=== PATIENT | male | born 1965 | race Caucasian/White ===

== ENCOUNTER → 2021-05-27 13:41 | Outpatient (BNVA) | payer BC, SELFPAY | PROVIDERS: PCP Internal Medicine; Visit Provider Internal Medicine ==

== ENCOUNTER 2022-06-08 18:49 | Emergency (ER) | payer BC, SELFPAY ==
--- NOTE | ~2022-06-08 | CT_ITS ---
EXAMINATION: NONCONTRAST HEAD CT NONCONTRAST CERVICAL SPINE CT INDICATION INFORMATION: Head pain status post fall with loss of consciousness. Neck pain COMPARISON: Head CT 01/19/2020 TECHNIQUE: Separate noncontrast CT examinations of the head and cervical spine were performed. Coronal and sagittal images were created for each examination at the technologist workstation. This CT examination was performed using dose optimization techniques as appropriate, variously including the following: *Automated exposure control *Adjustment of mA and/or kV according to patient size (this includes techniques or standardized protocols for targeted exams where dose is matched to indication/reason for exam; i.e. extremities or head) *Use of iterative reconstruction technique DLP: 1398 mGy-cm FINDINGS: HEAD: There is a small amount of subarachnoid hemorrhage overlying the anterolateral left frontal and temporal lobes. Suggestion of a trace extra-axial likely subdural hematoma overlying the upper anterior left temporal lobe on series 3 image 37. No additional intra or extra-axial hemorrhage, fluid collection, mass. No midline shift or herniation. Basal cisterns are patent. The diaz-white matter differentiation is maintained. No territorial encephalomalacia. No significant volume loss. There is no abnormal attenuation within the brain parenchyma. Right posterior's/parietal scalp hematoma with bubbles of gas consistent with the accompanying laceration. Correlate with exam. No calvarial fracture. Small mucous retention cyst in the left sphenoid sinus. Mastoid air cells are normally aerated. CERVICAL SPINE: Alignment: Mild grade 1 anterolisthesis at C4-C5. No additional subluxation. Vertebra: No acute fracture. No prevertebral soft tissue swelling. Degenerative disc disease: Status post ACDF at C3-C4 with intact plate and screw fixation and solid ankylosis of the vertebral bodies and the right facets. Moderate disc height loss at C5-C6 with endplate sclerosis and proliferative change. Intervertebral disc heights otherwise fairly well-maintained. There is facet arthrosis right greater than left at C4-C5 and on the left at C5-C6 area Other findings: The visualized lung apices grossly clear. No cervical lymphadenopathy/mass in the [id number]. CT/CT cervical spine wo IV con IMPRESSION: 1. Small amount of subarachnoid hemorrhage overlying the anterolateral left frontal and temporal lobes. 2. Suggestion of a trace extra-axial possibly subdural hematoma overlying the upper anterior left temporal lobe. 3. No midline shift or herniation. 4. Right posterior/parietal scalp hematoma and laceration. No calvarial fracture. 5. No traumatic subluxation or acute cervical spine fracture. This critical result was discussed with Dr. Landen Cooley at 8:00 PM on 06/08/2022 and it was ascertained that the content and urgency of the report was understood at the time of direct communication.
[2022-06-08 18:54] VITALS: BP 122/85; BP 130/90; PULSE 73; PULSE 78; RESP 16; O2SAT 98; BMI 33.4
--- NOTE | 2022-06-08 18:55 | ED_ITS ---
HPI - Fall General Chief Complaint: Fall Stated Complaint: Head injury, Loss of conscious per EMS Time Seen by Provider: 06/08/22 18:51 Source: patient and EMS Mode of arrival: EMS Limitations: altered mental status History of Present Illness HPI Narrative: Patient otherwise in stable health went to bar had few drinks came home was in the basement next to the bar heard a bang found him on the ground, hit his head to the ground with swelling of the occipital area patient does not remember was confused transient loss of consciousness confused after patient came to the ER what and how happened to him does not remember exactly no seizures notice no chest pain no cardiac history in the past patient complaining of headache and nausea patient ambulatory as such Related Data Home Medications Medication Instructions Recorded Confirmed citalopram 20 mg tablet 20 mg PO DAILY 05/27/21 05/27/21 fexofenadine 180 mg tablet 180 mg PO DAILY 05/27/21 05/27/21 fluticasone propionate 50 spray intranasal 05/27/21 05/27/21 mcg/actuation nasal spray,suspension ketoconazole 2 % topical cream 1 appl topical 05/27/21 05/27/21 levothyroxine 88 mcg tablet 88 mcg PO DAILY 05/27/21 05/27/21 lorazepam 0.5 mg tablet 0.5 mg PO QID PRN 05/27/21 05/27/21 methylcellulose (laxative) 500 mg 0 mg PO 05/27/21 05/27/21 tablet (Fiber Therapy (methylcellulose)) nortriptyline 10 mg capsule 10 mg PO BEDTIME 05/27/21 05/27/21 pantoprazole 40 mg tablet,delayed 40 mg PO BID 05/27/21 05/27/21 release tacrolimus 0.1 % topical ointment topical BEDTIME 05/27/21 05/27/21 tizanidine 4 mg tablet 4 mg PO BEDTIME 05/27/21 05/27/21 Allergies Allergy/AdvReac Type Severity Reaction Status Date / Time No Known Allergies Allergy Verified 06/08/22 18:54 Review of Systems Review of Systems: Yes all other systems are reviewed and are negative [facility] Past Medical History Medical History 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 Anxiety Basal cell carcinoma Cervical spondylosis without myelopathy Cervical stenosis of spinal canal Diverticulosis Dysphagia Eosinophilic esophagitis Erectile dysfunction External hemorrhoids GERD (gastroesophageal reflux disease) Globus sensation History of actinic keratoses History of basal cell carcinoma Hypothyroidism IBS (irritable bowel syndrome) Lentigines Overweight Panic disorder Post-nasal drip Tubular adenoma of colon Vomiting Surgical History H/O colonoscopy H/O endoscopy H/O shoulder surgery Hx of tonsillectomy S/P excision of neuroma Social History Social History Alcohol intake: current Alcohol intake frequency: 3 or more drinks per day Smoked in Last 30 Days: No Use of substances other than those prescribed or required for medical reasons: Yes Substance Use Type: Marijuana Substance Use Frequency: Daily Advance Directives: No Advance Directives Information Provided: Yes Physical Exam Vital Signs: Vital Signs: Last Vital Signs Temp 97.4 F 06/08/22 19:56 Pulse 82 06/08/22 20:23 Resp 20 06/08/22 20:23 BP 118/82 06/08/22 20:23 Pulse Ox 100 06/08/22 20:23 O2 Del Method 06/08/22 20:23 BMI result Body Mass Index 33.4 Appearance: Alert. Oriented X2. No acute distress. Intoxicated GCS 15 Eyes: PERRLA, No Nystagmus HEENT: Pharynx normal. Oral Mucosa moist scalp swelling right occipital area Neck: Normal inspection. Neck supple. CVS: Normal heart rate and rhythm. Pulses normal. Respiratory: No respiratory distress. Equal air entry bilateral, no wheezing/rales/rhonchi Abdomen: Soft and nontender. Bowel sounds are present, no mass palpable, no CVA tenderness Skin: Skin warm and dry. Normal skin color. Normal skin turgor. Extremities: No lower extremity edema. No calf tenderness Neuro: Oriented X 2. No motor deficit. No sensory deficit.No cerebellar signs , cranial nerves II-XII intact Medications Administered Discontinued Medications Generic Name Dose Route Start Last Admin Trade Name Freq PRN Reason Stop Dose Admin Ondansetron HCl 4 mg 06/08/22 19:26 06/08/22 19:37 Ondansetron Hcl 4 Mg/2 Ml Vial IVPUSH 06/08/22 19:27 4 mg ONCE ONE Administration Medical Decision Making Medical Decision Making MDM Narrative: 20:30 Patient status post mechanical fall with small subdural and subarachnoid hemorrhage contour coup GCS of 15 not on any anticoagulant or aspirin , vital stable will transfer to [facility] 20;[address] HAGEN at [facility] trauma except the patient in the ER Lab Data [facility] Lab Attestation statement: I reviewed the patient's lab results. 06/08/22 19:07 06/08/22 19:07 Labs: Lab Results 06/08/22 06/08/22 06/08/22 Range/Units 19:00 19:07 19:07 WBC 8.7 (4.8-10.8) X10*3/uL RBC 4.42 L (4.60-5.80) X10*6/uL Hgb 15.1 (14.0-18.0) g/dl Hct 43.4 (42.0-52.0) % MCV 98.2 H (80.0-98.0) fL MCH 34.2 H (27.0-33.0) pg MCHC 34.8 (31.0-36.0) g/dl RDW 11.7 (11.0-16.0) % Plt Count 232 (160-400) X10*3/uL MPV 10.8 (9.4-12.4) fL Immature Gran % (Auto) 0.2 (0.0-0.4) % Neut % (Auto) 54.1 (45-73) % Lymph % (Auto) 30.4 (20-40) % [place] % (Auto) 11.6 H (2-11) % Eos % (Auto) 3.1 (0-4) % Baso % (Auto) 0.6 (0-2) % Lymph # (Auto) 2.6 (1.2-4.9) X10*3/uL [place] # (Auto) 1.0 (0.1-1.2) X10*3/uL Eos # (Auto) 0.3 (0.0-0.4) X10*3/uL Baso # (Auto) 0.1 (0.0-0.2) X10*3/uL Abs Immat Gran (auto) 0.02 (0.00-0.03) X10*3/uL Absolute Neuts (auto) 4.7 (2.0-8.3) x10*3/uL Absolute Nucleated RBC 0.000 (0.0-0.012) X10*3/uL Nucleated RBC % (auto) 0.0 (0.0-0.2) /100WBC PT (10.0-13.1) SEC INR (0.9-1.1) APTT (26.0-36.4) SEC Sodium 138 (135-145) mmol/L Potassium 4.1 (3.3-5.1) mmol/L Chloride 102 (96-108) mmol/L Carbon Dioxide 22 (22-29) mmol/L Anion Gap 18 (12-20) BUN 9 (9-16) mg/dL Creatinine 1.09 (0.5-1.4) mg/dL Estim Creat Clear Calc 91.0 Estimated GFR > 60 POC Glucose 82 (60-115) mg/dL Random Glucose 89 (60-115) mg/dL Calcium 9.3 (8.4-10.2) mg/dL Magnesium 2.1 (1.6-2.6) mg/dL Total Bilirubin 0.3 (0.0-1.0) mg/dL AST 31 (5-37) U/L ALT 31 (0-40) U/L Alkaline Phosphatase 74 (39-117) U/L Troponin I High Sens (<3.5-35.0) ng/L Total Protein 7.5 (6.5-8.0) g/dL Albumin 4.2 (3.5-5.0) g/dL Urine Opiates Screen (Not Detect) Urine Fentanyl Screen (Not Detect) Ur Barbiturates Screen (Not Detect) Ur Phencyclidine Scrn (Not Detect) Ur Amphetamines Screen (Not Detect) U Benzodiazepines Scrn (Not Detect) Urine Cocaine Screen (Not Detect) U Marijuana (THC) Screen (Not Detect) Ethyl Alcohol 206 mg/dL COVID-19 (JOSETTE) (Negative) COVID-19 Clin Com 06/08/22 06/08/22 06/08/22 Range/Units 19:07 20:04 20:04 WBC (4.8-10.8) X10*3/uL RBC (4.60-5.80) X10*6/uL Hgb (14.0-18.0) g/dl Hct (42.0-52.0) % MCV (80.0-98.0) fL MCH (27.0-33.0) pg MCHC (31.0-36.0) g/dl RDW (11.0-16.0) % Plt Count (160-400) X10*3/uL MPV (9.4-12.4) fL Immature Gran % (Auto) (0.0-0.4) % Neut % (Auto) (45-73) % Lymph % (Auto) (20-40) % [place] % (Auto) (2-11) % Eos % (Auto) (0-4) % Baso % (Auto) (0-2) % Lymph # (Auto) (1.2-4.9) X10*3/uL [place] # (Auto) (0.1-1.2) X10*3/uL Eos # (Auto) (0.0-0.4) X10*3/uL Baso # (Auto) (0.0-0.2) X10*3/uL Abs Immat Gran (auto) (0.00-0.03) X10*3/uL Absolute Neuts (auto) (2.0-8.3) x10*3/uL Absolute Nucleated RBC (0.0-0.012) X10*3/uL Nucleated RBC % (auto) (0.0-0.2) /100WBC PT 11.2 (10.0-13.1) SEC INR 1.0 (0.9-1.1) APTT 34.3 (26.0-36.4) SEC Sodium (135-145) mmol/L Potassium (3.3-5.1) mmol/L Chloride (96-108) mmol/L Carbon Dioxide (22-29) mmol/L Anion Gap (12-20) BUN (9-16) mg/dL Creatinine (0.5-1.4) mg/dL Estim Creat Clear Calc Estimated GFR POC Glucose (60-115) mg/dL Random Glucose (60-115) mg/dL Calcium (8.4-10.2) mg/dL Magnesium (1.6-2.6) mg/dL Total Bilirubin (0.0-1.0) mg/dL AST (5-37) U/L ALT (0-40) U/L Alkaline Phosphatase (39-117) U/L Troponin I High Sens < 3.5 (<3.5-35.0) ng/L Total Protein (6.5-8.0) g/dL Albumin (3.5-5.0) g/dL Urine Opiates Screen (Not Detect) Urine Fentanyl Screen (Not Detect) Ur Barbiturates Screen (Not Detect) Ur Phencyclidine Scrn (Not Detect) Ur Amphetamines Screen (Not Detect) U Benzodiazepines Scrn (Not Detect) Urine Cocaine Screen (Not Detect) U Marijuana (THC) Screen (Not Detect) Ethyl Alcohol mg/dL COVID-19 (JOSETTE) Negative (Negative) COVID-19 Clin Com See Note 06/08/22 Range/Units 20:45 WBC (4.8-10.8) X10*3/uL RBC (4.60-5.80) X10*6/uL Hgb (14.0-18.0) g/dl Hct (42.0-52.0) % MCV (80.0-98.0) fL MCH (27.0-33.0) pg MCHC (31.0-36.0) g/dl RDW (11.0-16.0) % Plt Count (160-400) X10*3/uL MPV (9.4-12.4) fL Immature Gran % (Auto) (0.0-0.4) % Neut % (Auto) (45-73) % Lymph % (Auto) (20-40) % [place] % (Auto) (2-11) % Eos % (Auto) (0-4) % Baso % (Auto) (0-2) % Lymph # (Auto) (1.2-4.9) X10*3/uL [place] # (Auto) (0.1-1.2) X10*3/uL Eos # (Auto) (0.0-0.4) X10*3/uL Baso # (Auto) (0.0-0.2) X10*3/uL Abs Immat Gran (auto) (0.00-0.03) X10*3/uL Absolute Neuts (auto) (2.0-8.3) x10*3/uL Absolute Nucleated RBC (0.0-0.012) X10*3/uL Nucleated RBC % (auto) (0.0-0.2) /100WBC PT (10.0-13.1) SEC INR (0.9-1.1) APTT (26.0-36.4) SEC Sodium (135-145) mmol/L Potassium (3.3-5.1) mmol/L Chloride (96-108) mmol/L Carbon Dioxide (22-29) mmol/L Anion Gap (12-20) BUN (9-16) mg/dL Creatinine (0.5-1.4) mg/dL Estim Creat Clear Calc Estimated GFR POC Glucose (60-115) mg/dL Random Glucose (60-115) mg/dL Calcium (8.4-10.2) mg/dL Magnesium (1.6-2.6) mg/dL Total Bilirubin (0.0-1.0) mg/dL AST (5-37) U/L ALT (0-40) U/L Alkaline Phosphatase (39-117) U/L Troponin I High Sens (<3.5-35.0) ng/L Total Protein (6.5-8.0) g/dL Albumin (3.5-5.0) g/dL Urine Opiates Screen Not Detected (Not Detect) Urine Fentanyl Screen Not Detected (Not Detect) Ur Barbiturates Screen Not Detected (Not Detect) Ur Phencyclidine Scrn Not Detected (Not Detect) Ur Amphetamines Screen Not Detected (Not Detect) U Benzodiazepines Scrn Not Detected (Not Detect) Urine Cocaine Screen Not Detected (Not Detect) U Marijuana (THC) Screen POSITIVE H (Not Detect) Ethyl Alcohol mg/dL COVID-19 (JOSETTE) (Negative) COVID-19 Clin Com Independent Interpretation I performed an independent interpretation of an: EKG Interpretation: Normal sinus rhythm heart rate 70 beats per minute normal interval n axis impression normal EKG Radiology Impression Discussion of test interpretation with radiology: I discussed test interpretation with the radiologist Radiologist Impression: CT/CT head/brain wo IV con IMPRESSION: 1.? Small amount of subarachnoid hemorrhage overlying the anterolateral left frontal and temporal lobes. 2.? Suggestion of a trace extra-axial possibly subdural hematoma overlying the upper anterior left temporal lobe. 3.? No midline shift or herniation. 4.? Right posterior/parietal scalp hematoma and laceration. No calvarial fracture. 5.? No traumatic subluxation or acute cervical spine fracture. ? Critical Care Time Critical Care Time Critical Care Time: Yes Total Critical Care Time: 35 Attestation: The patient was critically ill with a high probability of imminent or life threatening deterioration. I spent greater than 40 minutes of discontinuous time evaluating the patient,delivering critical care at the bedside, discussing and evaluating pertinent data with consultants. Critical care time does not include time spent performing separately billable procedures or teaching. Total time spent performing critical care was 35 minutes. Discharge Plan Discharge Clinical Impression: Subarachnoid hemorrhage, Alcohol intoxication Patient Disposition: [facility] Transfer Details: [facility] ED for trauma evaluation Prescriptions: No Action fexofenadine 180 mg tablet 180 mg PO DAILY tizanidine 4 mg tablet 4 mg PO BEDTIME tacrolimus 0.1 % ointment topical BEDTIME levothyroxine 88 mcg tablet 88 mcg PO DAILY pantoprazole 40 mg tablet,delayed release (DR/EC) 40 mg PO BID citalopram 20 mg tablet 20 mg PO DAILY lorazepam 0.5 mg tablet 0.5 mg PO QID PRN nortriptyline 10 mg capsule 10 mg PO BEDTIME fluticasone propionate 50 mcg/actuation spray,suspension intranasal Fiber Therapy (m-cellulose) 500 mg tablet 0 mg PO ketoconazole 2 % cream 1 appl topical
--- NOTE | 2022-06-08 19:00 | MHC.EDTECH ---
this pct assumed care of patient at 1900 ,1999 vitals sign taken and ekg ,patient ask for a vomit bag incased he neede to vomit ,call [facility] with in reach .
[2022-06-08 19:04] LABS: Glucose, Whole Blood 82 mg/dL (60-115)
--- NOTE | 2022-06-08 19:11 | ECG_ITS ---
Test Reason : ETOH Blood Pressure : / mmHG Vent. Rate : 070 BPM Atrial Rate : 070 BPM P-R Int : 184 ms QRS Dur : 100 ms QT Int : 406 ms P-R-T Axes : 022 -14 006 degrees QTc Int : 438 ms Normal sinus rhythm Normal ECG No previous ECGs available Referred By: Landen Cooley Electronically Signed By:AKDEEM COLLINS MD
[2022-06-08 19:15] LABS: MANUAL DIFF FLAG NO
[2022-06-08 19:17] LABS: Basophils Absolute Auto 0.1 X10*3/uL (0.0-0.2); Basophils Percent Auto 0.6 % (0-2); Eosinophils Absolute Auto 0.3 X10*3/uL (0.0-0.4); Eosinophils Percent Auto 3.1 % (0-4); Hematocrit 43.4 % (42.0-52.0); Hemoglobin 15.1 g/dl (14.0-18.0); Imm Gran Abs Auto 0.02 X10*3/uL (0.00-0.03); Imm Gran Pct Auto 0.2 % (0.0-0.4); Lymphocytes Absolute Auto 2.6 X10*3/uL (1.2-4.9); Lymphocytes Percent Auto 30.4 % (20-40); Mean Corpuscular HGB Conc 34.8 g/dl (31.0-36.0); Mean Corpuscular Hemoglobin 34.2 pg (27.0-33.0); Mean Corpuscular Volume 98.2 fL (80.0-98.0); Mean Platelet Volume 10.8 fL (9.4-12.4); Monocytes Percent Auto 11.6 % (2-11); Neutrophils Absolute Auto 4.7 x10*3/uL (2.0-8.3); Neutrophils Percent Auto 54.1 % (45-73); Platelet Count 232 X10*3/uL (160-400); Red Blood Count 4.42 X10*6/uL (4.60-5.80); Red Cell Distribution Width 11.7 % (11.0-16.0); White Blood Count 8.7 X10*3/uL (4.8-10.8)
--- NOTE | 2022-06-08 19:22 | PC.NURSE ---
iv inserted, labs drawn, pt to ct scan
[2022-06-08 19:30] LABS: COVID-19 Test Negative (Negative); IDNOW Serial# 16C4AD1C
[2022-06-08 19:36] LABS: Alanine Aminotransferase 31 U/L (0-40); Albumin Level 4.2 g/dL (3.5-5.0); Alkaline Phosphatase 74 U/L (39-117); Anion Gap 18 (12-20); Aspartate Amino Transferase 31 U/L (5-37); Bilirubin Total 0.3 mg/dL (0.0-1.0); Blood Urea Nitrogen 9 mg/dL (9-16); Calcium 9.3 mg/dL (8.4-10.2); Carbon Dioxide 22 mmol/L (22-29); Chloride 102 mmol/L (96-108); Estimated Glomerular Filt Rate > 60; Ethanol 206 mg/dL; Glucose Random 89 mg/dL (60-115); Magnesium 2.1 mg/dL (1.6-2.6); Potassium 4.1 mmol/L (3.3-5.1); Sodium 138 mmol/L (135-145); Total Protein 7.5 g/dL (6.5-8.0)
[2022-06-08] MEDS: ondansetron HCL 4 MG/2 ML VIAL IVPUSH (19:37)
--- NOTE | 2022-06-08 19:38 | PC.NURSE ---
pt went to ct scan, c/o nausea, pt medicated with zofran
[2022-06-08 19:56] VITALS: BP 124/81; PULSE 71; RESP 16; TEMP 36.3; O2SAT 98
--- NOTE | 2022-06-08 20:05 | MHC.EDTECH ---
blood drawn done and send to lab.
[2022-06-08 20:21] LABS: Prothrombin Time 11.2 SEC (10.0-13.1)
--- NOTE | 2022-06-08 20:21 | PC.NURSE ---
phone number neda leticia [phone]
[2022-06-08 20:23] VITALS: BP 118/82; PULSE 82; RESP 20; O2SAT 100
[2022-06-08 20:23] LABS: Partial Thromboplastin Time 34.3 SEC (26.0-36.4)
--- NOTE | 2022-06-08 20:23 | PC.NURSE ---
patient awake alert to person, pt confused- unsure how he got to the hospital, unsure date/president, pt repeating himself asking the same questions over and over, at bedside reassuring patient. vitals currently stable, pt to be transferred to [facility]-provider is setting up transfer
[2022-06-08 20:34] LABS: Troponin-I High Sensitivity < 3.5 ng/L (<3.5-35.0)
--- NOTE | 2022-06-08 20:36 | MHC.EDTECH ---
@2029 called [facility] transfer line to request a transfer for the patient. Gave patient demographics to the miller helper. She requested to speak with Dr. Allen. Dr. Allen took the call right away.
--- NOTE | 2022-06-08 20:39 | MHC.EDTECH ---
@2037 [facility] transfer line called back. The woman asked to speak with Dr. Allen. Dr. Allen took the call right away.
--- NOTE | 2022-06-08 21:04 | PC.NURSE ---
report called neva at [facility] pt ready for transfer when ambulance arrives.
[2022-06-08 21:06] LABS: Amphetamine Screen Urine Not Detected (Not Detect); Barbiturates, Urine Not Detected (Not Detect); Benzodiazepines Screen Urine Not Detected (Not Detect); Cannabinoid Screen Urine POSITIVE (Not Detect); Cocaine Screen Urine Not Detected (Not Detect); Fentanyl, urine Not Detected (Not Detect); Opiate Screen Urine Not Detected (Not Detect); Phencyclidine Screen Urine Not Detected (Not Detect)
--- NOTE | 2022-06-08 21:12 | MHC.EDTECH ---
@[id number] called [facility] to request transport for the patient. Lis answered. She took patient demographics and stated the patient would be transported ALS. ETA according to Lis is 20 minutes.
== END 2022-06-09 00:35 | disposition short-term general hospital (02) ==
PROVIDERS: Emergency Provider Internal Medicine; PCP Internal Medicine
DX: S06.6XAA Traumatic subarachnoid hemorrhage with loss of consciousness status unknown, initial encounter (principal); F10.129 Alcohol abuse with intoxication, unspecified; R40.2410 Glasgow coma scale score 13-15, unspecified time; R51.9 Headache, unspecified; M54.2 Cervicalgia; Y90.7 Blood alcohol level of 200-239 mg/100 ml; W01.0XXA Fall on same level from slipping, tripping and stumbling without subsequent striking against object, initial encounter; Y93.9 Activity, unspecified; Y92.9 Unspecified place or not applicable; Y99.9 Unspecified external cause status; Z20.822 Contact with and (suspected) exposure to COVID-19; Z20.828 Contact with and (suspected) exposure to other viral communicable diseases; Z79.899 Other long term (current) drug therapy
CPT/HCPCS: 36415; 70450; 72125; 80053; 80307; 82077; 82947; 83735; 84484; 85025; 85610; 85730; 87635; 93005; 99285; J2405